=== PATIENT | male | born 2000 | race Caucasian/White ===

== ENCOUNTER 2021-08-18 12:48 | Emergency (ER) | payer SELFPAY ==
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
[2021-08-18 13:29] VITALS: BP 116/82; PULSE 86; RESP 16; TEMP 36.8; O2SAT 99
== END 2021-08-18 14:44 | disposition home or self-care (01) ==
PROVIDERS: Emergency Provider Nurse Practitioner Family
DX: Z04.1 Encounter for examination and observation following transport accident (principal); M54.9 Dorsalgia, unspecified; M25.562 Pain in left knee; V44.5XXA Car driver injured in collision with heavy transport vehicle or bus in traffic accident, initial encounter
CPT/HCPCS: 72040; 72072; 72100; 73562; 99282